=== PATIENT | female | born 1985 | race Caucasian/White ===

== ENCOUNTER 2021-10-13 12:16 | Outpatient (CLI) | payer SELFPAY ==
--- NOTE | 2021-10-13 | XR_ITS ---
WS: [id number] Left ankle, 3 views, 10/13/2021 Clinical Data: INJURY OF LEFT ANKLE Comparison: None. Findings: No fractures or dislocations are seen. The ankle mortise is normal. The talus and calcaneus are unrem arkable. No soft tissue swelling over the medial or lateral malleolus is seen. There is a small plantar spur. XR/XR ankle LT min 3V* [id number] Impression: Negative left ankle.
== END 2021-10-13 12:17 | disposition home or self-care (01) ==
LOC: RADOUTREAD 10-17 12:23
PROVIDERS: Visit Provider Nurse Practitioner Family
DX: S99.912D Unspecified injury of left ankle, subsequent encounter (principal); X58.XXXD Exposure to other specified factors, subsequent encounter
CPT/HCPCS: 73610

== ENCOUNTER → 2023-01-09 14:15 | Outpatient (BNVA) | payer SELFPAY | PROVIDERS: Visit Provider Nurse Practitioner | DX: J02.9 Acute pharyngitis, unspecified (principal) | CPT/HCPCS: 87880 ==

== ENCOUNTER 2023-07-25 11:02 | Emergency (ER) | payer SELFPAY ==
--- NOTE | 2023-07-25 11:08 | XR_ITS ---
WS: [id number] Left shoulder, 2 views, 07/25/2023 Clinical Data: pain Comparison: None. Findings: No fractures or dislocations are seen. The AC joint is normal. The adjacent left clavicle, left scapu la and ribs are normal. The soft tissues are unremarkable. Impression: Negative left shoulder.
[2023-07-25 11:18] VITALS: BP 158/98; PULSE 73; RESP 18; TEMP 36.4; O2SAT 94; BMI 45.1
--- NOTE | 2023-07-25 12:14 | ED_ITS ---
HPI - Extremity Problem General: Chief complaint: Extremity Problem,Nontraumatic Stated complaint: Left Shoulder pain Time Seen by Provider: 07/25/23 12:10 Source: patient Mode of arrival: ambulatory Limitations: no limitations History of Present Illness: 38-year-old female states she did lift h er left arm above her head this morning felt a pop in her left shoulder states that she has had pain in the shoulder since then especially if she tries to lift it above parallel states at rest she has minimal pain denies any previous injuries. Associated symptoms: Deny chest pain, fever(s) or rash Review of Systems Const: Denies: fever(s), chills, body aches or change in appetite ENMT: Denies: throat pain or dental pain Card: Denies: chest pain Resp: Denies: dyspnea GI: Denies: abdominal pain, nausea, vomiting or diarrhea Musc: Reports: extremity pain; Denies: neck pain or back pain Skin/Breast: Denies: rash Neuro: Denies: headache(s) Physical Exam Const: COMMON NORMALS: no acute distress, patient oriented x3 and healthy appearing HENMT: COMMON NORMALS: normocephalic and atraumatic HEAD & SCALP: normocephalic and atraumatic Neck/C-Spine: COMMON NORMALS: full ROM and supple Chest: COMMONS NORMALS: normal inspection of the chest and normal palpation of entire chest wall Resp: COMMON NORMALS: normal respiratory effort, No retractions, No use of accessory muscles and clear to auscultation bilaterally AUSCULTATION: clear to auscultation bilaterally Cardio: COMMON NORMALS: regular rate, regular rhythm and No murmurs present (Cardio) RATE: regular rate RHYTHM: regular rhythm Extremity: NARRATIVE EXTREMITY EXAM: Pain to lateral shoulder she does have some pain with range of motion but able to range her arm here no signs of dislocation distal pulses sensation intact Neuro: COMMON NORMALS: patient oriented x3, moves all extremities and no focal motor deficits Psych: COMMON NORMALS: mental status grossly normal, Normal thought process present and cooperative THOUGHT PROCESS: Normal thought process present Skin: COMMON NORMALS: no rashes or lesions noted and no wounds GENERAL SKIN EXAM: no rashes or lesions noted Course Vital Signs: Vital signs: Vital Signs Temperature 97.6 F 07/25/23 11:18 Pulse Rate 73 07/25/23 11:18 Respiratory Rate 18 07/25/23 11:18 Blood Pressure 158/98 07/25/23 11:18 Pulse Oximetry 94 07/25/23 11:18 Oxygen Delivery Me thod Room Air 07/25/23 11:18 MDM - Extremity (Nontraumatic) Medical Decision Making Patient presents here with a shoulder strain x-ray shows no fracture or dislocation she is well-appearing here she is to ice rest we will place her on muscle relaxant and anti-inflammatory she is to follow-up with orthopedics return if worsening Medical Records I reviewed the patient's medical records. XR interpretation done by ED provider, pending radiology final review ED provider radiology interpretation(s): X-ray left shoulder no acute abnormality Discharge Plan Discharge Patient Disposition: Home Clinical Impression: Left shoulder strain Qualifiers: Encounter type: initial encounter Qualified Code(s): S46.912A - Strain of unspecified muscle, fascia and tendon at shoulder and upper arm level, left arm, initial encounter Condition: Stable Prescriptions: New methocarbamol 750 mg tablet 750 mg PO Q6H PRN (Reason: spasms) Qty: 20 0RF Naprosyn 500 mg tablet 500 mg PO BID PRN (Reason: pain) Qty: 20 0RF No Action amoxicillin 500 mg capsule 500 mg PO BID 10 Days Qty: 20 0RF Discharge Orders: Discharge ED (Routine); Ordered 07/25/23 Ordered By: Maria Fernanda Heath Referrals: Mack Aceves DO [Physician] - 1-3 days Discharge Diet: Advance as tolerated Discharge Activity: Resume usual activity Patient Instructions: Shoulder Pain (ED) Coding 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
--- NOTE | 2023-07-25 12:26 | DCPLANNER ---
A message was sent to ortho on 07/25/[address] [place] [address] to contact patient for appt.
== END 2023-07-25 12:33 | disposition home or self-care (01) ==
PROVIDERS: Emergency Provider Emergency Medicine
DX: S46.912A Strain of unspecified muscle, fascia and tendon at shoulder and upper arm level, left arm, initial encounter (principal); X50.1XXA Overexertion from prolonged static or awkward postures, initial encounter
CPT/HCPCS: 73030; 99283

== ENCOUNTER 2023-10-23 02:41 | Emergency (ER) | payer SELFPAY ==
[2023-10-23 02:50] VITALS: BP 136/86; PULSE 83; RESP 16; TEMP 36.6; O2SAT 96; BMI 44.3
--- NOTE | 2023-10-23 03:03 | W.ED.SOB ---
HPI - SOB/Dyspnea General: Chief Complaint: Shortness of Breath/Dyspnea Stated Complaint: Sore Throat\SOB Time Seen by Provider: 10/23/23 02:55 History of Present Illness: HPI Narrative: 38-year-old female who presents emergency room with a sore throat. She says it has been going on for several days now. Has become painful to swallow. She also has some pain with breathing. Also may be somewhat short of breath. No fevers. No vomiting. No abdominal pain. No chest pain. Review of Systems Narrative: Constitutional symptoms: Negative except as documented in HPI. Skin symptoms: Negative except as documented in HPI. Eye symptoms: Negative except as documented in HPI. ENMT symptoms: Negative except as documented in HPI. Respiratory symptoms: Negative except as documented in HPI. Cardiovascular symptoms: Negative except as documented in HPI. Gastrointestinal symptoms: Negative except as documented in HPI. Genitourinary symptoms: Negative except as documented in HPI. Musculoskeletal symptoms: Negative except as documented in HPI. Neurologic symptoms: Negative except as documented in HPI. Psychiatric symptoms: Negative except as documented in HPI. Endocrine symptoms: Negative except as documented in HPI. Physical Exam Narrative: EXAM NARRATIVE: General: Alert, no acute distress. Skin: warm and dry Head: Normocephalic Neck: Trachea midline Eye: Extraocular movements are intact. Ears, nose, mouth and throat: Oral mucosa moist. Tonsillar swelling with erythema and exudate. No uvular deviation Respiratory: Respirations are non-labored Musculoskeletal: Normal ROM Neurological: Alert and oriented, No focal neurological deficit observed. Psychiatric: Cooperative, appropriate mood & affect. Course Vital Signs: Vital signs: Vital Signs Temperature 97.8 F 10/23/23 02:50 Pulse Rate 83 10/23/23 02:50 Respiratory Rate 16 10/23/23 02:50 Blood Pressure 136/86 10/23/23 02:50 Pulse Oximetry 96 10/23/23 02:50 Oxygen Delivery Me thod Room Air 10/23/23 02:50 MDM - SOB/Dyspnea Medical Decision Making Assessment and plan: Pharyngitis ? IM Decadron and Rocephin in the emergency room - Discharged home - Discussed plan with patient. Answered any questions. - Evaluation and treatment of this problem were appropriate in the emergency setting. No radiology studies performed this visit Discharge Plan Discharge Patient Disposition: Home Clinical Impression: Pharyngitis Qualifiers: Pharyngitis/tonsillitis etiology: unspecified etiology Qualified Code(s): J02.9 - Acute pharyngitis, unspecified Condition: Stable Prescriptions: New dexamethasone 6 mg tablet 6 mg PO DAILY 5 Days Qty: 5 0RF cefdinir 300 mg capsule 300 mg PO BID 7 Days Qty: 14 0RF No Action amoxicillin 500 mg capsule 500 mg PO BID 10 Days Qty: 20 0RF methocarbamol 750 mg tablet 750 mg PO Q6H PRN (Reason: spasms) Qty: 20 0RF Naprosyn 500 mg tablet 500 mg PO BID PRN (Reason: pain) Qty: 20 0RF Discharge Orders: Discharge ED (Routine); Ordered 10/23/23 Ordered By: Heide Haney Discharge Diet: Advance as tolerated Discharge Activity: Increase activity as tolerated Patient Instructions: Pharyngitis (ED) Activity Restrictions/Additional Instructions: Thank you for choosing [facility] for your healthcare needs today. Please realize this is an emergency room and that we are providing you with a medical screening exam and this may not be complete and all inclusive of all the testing and or work up that you may need to determine your ailment or severity of your illness. You have been screened and evaluated and felt safe for discharge. Health conditions do change or evolve sometimes and as such it is important that you follow up with your Primary Doctor to be re checked, 3-5 days is a general good time frame for follow up. 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
[2023-10-23] MEDS: cefTRIAXone 1,000 MG in water for injection-sterile 2.1 ML 1 MG IM (03:23)
[2023-10-23] MEDS: dexamethasone 10 mg/mL INJ IM (03:23)
[2023-10-23 03:54] VITALS: BP 128/78; PULSE 72; RESP 16; O2SAT 99
== END 2023-10-23 03:48 | disposition home or self-care (01) ==
PROVIDERS: Emergency Provider Emergency Medicine
DX: J02.9 Acute pharyngitis, unspecified (principal)
CPT/HCPCS: 96372; 99284; J0696; J1100